=== PATIENT | male | born 1970 | race Caucasian/White ===

== ENCOUNTER 2016-07-05 12:44 | Emergency (ER) | payer OTHER | END 2016-07-05 14:19 | disposition home or self-care (01) | LOC: ER 12:44 | DX: M25.512 Pain in left shoulder (principal); G89.29 Other chronic pain; F17.210 Nicotine dependence, cigarettes, uncomplicated; Y04.0XXD Assault by unarmed brawl or fight, subsequent encounter; Z79.899 Other long term (current) drug therapy ==

== ENCOUNTER 2016-08-12 11:19 | Emergency (ER) | payer OTHER | END 2016-08-12 12:10 | disposition home or self-care (01) | LOC: ER 11:19 | DX: M54.5 Low back pain (principal); Z79.899 Other long term (current) drug therapy | CPT/HCPCS: 96372; 99282-25 ==